=== PATIENT | male | born 1955 | race Two or more races ===

== ENCOUNTER 2021-07-15 08:45 | Inpatient (IN) | payer OTHER ==
[~2021-07-15] VITALS: Ht 180.3 cm; Wt 89.4 kg
[~2021-07-15 08:45] MED LIST: AMBIEN10 MG PO; LIPITOR40 MG PO; PROZAC20 MG PO; ZESTRIL2.5 MG PO
[2021-07-15] MEDS ORDERED: LANTUS SOL100 UNIT/1 SUBCUTANEO (12:44)
[2021-07-15] MEDS ORDERED: HUMALOG100 UNIT/1 SUBCUTANEO (12:45)
== END 2021-07-22 16:55 | disposition home or self-care (01) | DRG 330 ==
LOC: SURH 07-19 08:12 → O/R 07-19 08:12 → SURH 07-19 08:45
PROVIDERS: ADMIT Colon & Rectal Surgery; ATTEND Colon & Rectal Surgery
PROC: 0DBP4ZZ Excision of Rectum, Percutaneous Endoscopic Approach (ICD-10-PCS; 2021-07-19)
PROC: 07BC4ZX Excision of Pelvis Lymphatic, Percutaneous Endoscopic Approach, Diagnostic (ICD-10-PCS; 2021-07-19)
PROC: 0DTN4ZZ Resection of Sigmoid Colon, Percutaneous Endoscopic Approach (ICD-10-PCS; principal; 2021-07-19 14:45)
DX: C18.6 Malignant neoplasm of descending colon (principal); K92.1 Melena; R59.0 Localized enlarged lymph nodes; Z85.038 Personal history of other malignant neoplasm of large intestine

== ENCOUNTER 2021-10-18 05:50 | Day surgery (SDC) | payer OTHER ==
[~2021-10-18 05:50] MED LIST changes: +HUMALOG100 UNIT/1 SUBCUTANEO; +LANTUS SOL100 UNIT/1 SUBCUTANEO
== END 2021-10-18 13:20 | disposition home or self-care (01) ==
LOC: CIR.AMB 05:50
PROVIDERS: ATTEND Colon & Rectal Surgery
DX: C18.6 Malignant neoplasm of descending colon (principal); Z85.038 Personal history of other malignant neoplasm of large intestine; Z20.822 Contact with and (suspected) exposure to COVID-19; I10 Essential (primary) hypertension; E78.5 Hyperlipidemia, unspecified; Z87.891 Personal history of nicotine dependence; E11.9 Type 2 diabetes mellitus without complications; K76.9 Liver disease, unspecified; Z79.4 Long term (current) use of insulin